=== PATIENT | female | born 1995 | race African-American/Black ===

== ENCOUNTER 2020-05-22 21:18 | Emergency (ER) | payer OTHER ==
[~2020-05-22] VITALS: Ht 154.9 cm; Wt 54.4 kg
[2020-05-22] MEDS ORDERED: PANADOL (22:02)
== END 2020-05-22 23:58 | disposition home or self-care (01) ==
LOC: ER 21:18 → EDBD 21:18 → ER 21:26
DX: S70.311A Abrasion, right thigh, initial encounter (principal); S30.810A Abrasion of lower back and pelvis, initial encounter; W18.39XA Other fall on same level, initial encounter; Y93.89 Activity, other specified; Y92.832 Beach as the place of occurrence of the external cause; Y99.8 Other external cause status